=== PATIENT | male | born 1995 | race Caucasian/White ===

== ENCOUNTER 2016-03-10 08:57 | Emergency (ER) | payer OTHER ==
[2016-03-10] MEDS ORDERED: NS 0.9% 1000 ML* 1,000 ML IV ONE ×2 (09:10→09:57)
[2016-03-10 09:19] LABS: Hematocrit 46 % (42-52); Hemoglobin 15.8 g/dl (14.0-18.0); Mean Corpuscular HGB Conc 34 g/dl (31-36); Mean Corpuscular Hemoglobin 30 pg (27-31); Mean Corpuscular Volume 87 fL (80-94); Mean Platelet Volume 8 um3 (7.4-10.4); Red Blood Count 5.34 10^6/ul (4.0-5.4); Red Cell Distribution Width 13 % (10.5-15); White Blood Count 9.5 10^3/ul (3.5-10.8)
[2016-03-10 09:33] LABS: Albumin 4.7 g/dL (3.2-5.2); BUN/Creatinine Ratio 15.1 (8-20); Calcium 9.5 mg/dL (8.6-10.3); EGFR African American 134.6 (>60); EGFR Non-African American 104.7 (>60); Globulin 3.3 g/dL (2-4); Magnesium 2.4 mg/dL (1.9-2.7); Potassium 3.6 mmol/L (3.5-5.0)
[2016-03-10] MEDS ORDERED: Acetaminophen TAB* 325 MG PO ONE (10:24)
[2016-03-10] MEDS ORDERED: Valproic Acid IV(*) 500 MG in NS 0.9% 100 ML* 100 ML IVPB ONE (10:29)
--- NOTE | 2016-03-10 10:44 | ED ---
Miladis Mcintosh Claudia, scribed for Nya Beatty MD on 03/10/16 at 0920 . Neurological HPI - HPI Summary HPI Summary: 20 year old male presents to the ED post Sz. Pt and pt's girlfriend whom witnessed the Sz documented. The note the Sz occurred this am while they were both lying in bed. Pt girlfriend noted the Sz lasted about 4-5 minutes. She also noted that the pt was complaining of a little tightness in his chest immediately before he seized, which has now resolved. Pt noted PMHx of Sz but the last episode of Sz was when he was in 8th grade. Pt does take a Rx of depakote and has been taking it regularly. Pt notes he only had 1 drink of ETOH last night but only got about 4-5 hours of sleep and is unsure if it triggered the Sz. Pt denies biting his tongue or hitting his head. Pt also denies any vomiting or diarrhea. Pt does admit to a mild SERRATO upon arrival to ED. - History of Current Complaint Stated Complaint: SEIZURE Time Seen by Provider: 03/10/16 09:10 Hx Obtained From: Patient Onset/Duration: Sudden Onset - Sz this am Timing: Sudden Onset Neurological Deficit Location: Generalized - Sz Seizure Character: Generalized Associated Signs and Symptoms: Positive: Headache, Seizure - 1 episode this am. Negative: Incontinent Bladder/Bowel, Nausea/Vomiting, Diarrhea - Allergy/Home Medications Allergies/Adverse Reactions: Allergies Allergy/AdvReac Type Severity Reaction Status Date / Time No Known Allergies Allergy Verified 03/10/16 09:18 PMH/Surg Hx/FS Hx/Imm Hx Previously Healthy: Yes Endocrine/Hematology History: Denies: Hx Diabetes Neurological History: Reports: Hx Seizures - Family History Known Family History: Negative: Hypertension, Diabetes, Seizure Disorder - Social History Occupation: Student - [employer] Lives: With Family Alcohol Use: Rare Hx Substance Use: No Hx Tobacco Use: No Review of Systems Constitutional: Negative Eyes: Negative ENT: Negative Cardiovascular: Negative Respiratory: Negative Gastrointestinal: Negative Negative: Vomiting, Diarrhea Genitourinary: Negative Musculoskeletal: Negative Skin: Negative Positive: Headache Psychological: Normal All Other Systems Reviewed And Are Negative: Yes Physical Exam Triage Information Reviewed: Yes Vital Signs On Initial Exam: Initial Vitals Temp Pulse Resp BP Pulse Ox 97.6 F 94 16 105/62 99 03/10/16 09:05 03/10/16 09:05 03/10/16 09:05 03/10/16 09:05 03/10/16 09:05 Vital Signs Reviewed: Yes Appearance: Positive: Well-Appearing, No Pain Distress Skin: Positive: Warm, Skin Color Reflects Adequate Perfusion, Dry Eyes: Positive: EOMI, PRICE ENT: Positive: Pharynx normal, TMs normal, Other - no tongue abrasion Neck: Positive: Supple, Nontender Respiratory/Lung Sounds: Positive: Clear to Auscultation, Breath Sounds Present. Negative: Rales, Rhonchi, Wheezes Cardiovascular: Positive: RRR. Negative: Murmur, Rub Abdomen Description: Positive: Nontender, Soft. Negative: Distended, Guarding Bowel Sounds: Positive: Present Musculoskeletal: Positive: Strength/ROM Intact. Negative: Edema Left, Edema Right Neurological: Positive: Sensory/Motor Intact, Alert, Oriented to Person Place, Time, CN Intact II-III Psychiatric: Positive: Affect/Mood Appropriate Diagnostics - Vital Signs Vital Signs Temp Pulse Resp BP Pulse Ox 03/10/16 09:30 89 113/68 99 03/10/16 09:20 93 98 03/10/16 09:18 105/62 03/10/16 09:05 97.6 F 94 16 105/62 99 - Laboratory Lab Results: Lab Results 03/10/16 03/10/16 03/10/16 Range/Units 09:10 09:10 09:10 WBC 9.5 (3.5-10.8) 10^3/ul RBC 5.34 (4.0-5.4) 10^6/ul Hgb 15.8 (14.0-18.0) g/dl Hct 46 (42-52) % MCV 87 (80-94) fL MCH 30 (27-31) pg MCHC 34 (31-36) g/dl RDW 13 (10.5-15) % Plt Count 209 (150-450) 10^3/ul MPV 8 (7.4-10.4) um3 Neut % (Auto) 54.0 (38-83) % Lymph % (Auto) 33.3 (25-47) % [place] % (Auto) 10.4 H (1-9) % Eos % (Auto) 1.7 (0-6) % Baso % (Auto) 0.6 (0-2) % Absolute Neuts (auto) 5.1 (1.5-7.7) 10^3/ul Absolute Lymphs (auto) 3.2 (1.0-4.8) 10^3/ul Absolute Monos (auto) 1.0 H (0-0.8) 10^3/ul Absolute Eos (auto) 0.2 (0-0.6) 10^3/ul Absolute Basos (auto) 0.1 (0-0.2) 10^3/ul Absolute Nucleated RBC 0.01 10^3/ul Nucleated RBC % 0.1 INR (Anticoag Therapy) 1.09 (0.89-1.11) Sodium 133 (133-145) mmol/L Potassium 3.6 (3.5-5.0) mmol/L Chloride 100 L (101-111) mmol/L Carbon Dioxide 19 L (22-32) mmol/L Anion Gap 14 H (2-11) mmol/L BUN 14 (6-24) mg/dL Creatinine 0.93 (0.67-1.17) mg/dL Est GFR ( Amer) 134.6 (>60) Est GFR (Non-Af Amer) 104.7 (>60) BUN/Creatinine Ratio 15.1 (8-20) Glucose 111 H (70-100) mg/dL Lactic Acid (0.5-2.0) mmol/L Calcium 9.5 (8.6-10.3) mg/dL Magnesium 2.4 (1.9-2.7) mg/dL Total Bilirubin 1.00 (0.2-1.0) mg/dL AST 18 (13-39) U/L ALT 21 (7-52) U/L Alkaline Phosphatase 46 (34-104) U/L Total Protein 8.0 (6.4-8.9) g/dL Albumin 4.7 (3.2-5.2) g/dL Globulin 3.3 (2-4) g/dL Albumin/Globulin Ratio 1.4 (1-3) Valproic Acid 27.0 L (50-100) mcg/mL 03/10/16 Range/Units 09:10 WBC (3.5-10.8) 10^3/ul RBC (4.0-5.4) 10^6/ul Hgb (14.0-18.0) g/dl Hct (42-52) % MCV (80-94) fL MCH (27-31) pg MCHC (31-36) g/dl RDW (10.5-15) % Plt Count (150-450) 10^3/ul MPV (7.4-10.4) um3 Neut % (Auto) (38-83) % Lymph % (Auto) (25-47) % [place] % (Auto) (1-9) % Eos % (Auto) (0-6) % Baso % (Auto) (0-2) % Absolute Neuts (auto) (1.5-7.7) 10^3/ul Absolute Lymphs (auto) (1.0-4.8) 10^3/ul Absolute Monos (auto) (0-0.8) 10^3/ul Absolute Eos (auto) (0-0.6) 10^3/ul Absolute Basos (auto) (0-0.2) 10^3/ul Absolute Nucleated RBC 10^3/ul Nucleated RBC % INR (Anticoag Therapy) (0.89-1.11) Sodium (133-145) mmol/L Potassium (3.5-5.0) mmol/L Chloride (101-111) mmol/L Carbon Dioxide (22-32) mmol/L Anion Gap (2-11) mmol/L BUN (6-24) mg/dL Creatinine (0.67-1.17) mg/dL Est GFR ( Amer) (>60) Est GFR (Non-Af Amer) (>60) BUN/Creatinine Ratio (8-20) Glucose (70-100) mg/dL Lactic Acid 7.8 H* (0.5-2.0) mmol/L Calcium (8.6-10.3) mg/dL Magnesium (1.9-2.7) mg/dL Total Bilirubin (0.2-1.0) mg/dL AST (13-39) U/L ALT (7-52) U/L Alkaline Phosphatase (34-104) U/L Total Protein (6.4-8.9) g/dL Albumin (3.2-5.2) g/dL Globulin (2-4) g/dL Albumin/Globulin Ratio (1-3) Valproic Acid (50-100) mcg/mL Result Diagrams: 03/10/16 09:10 03/10/16 09:10 Lab Statement: Any lab studies that have been ordered have been reviewed, and results considered in the medical decision making process. - EKG 9:00 Cardiac Rate: NL EKG Rhythm: Sinus Rhythm - 103 beats/min EKG Interpretation: No inverted T-waves. Course/Dx - Course Course Of Treatment: 20 yo male on depakote 500 mg qhs for seizures, without a sz since the age of 9 had a seizure lasting ~4mins according to significant other this am without head injury,tongue biting, or urinary incontinence. He reports one drink last night (he was released to do so by his neurologist in [place] ) and he had a lack of sleep due to taking care of his sick girlfriend. His depakote level here is 24. Neurology here suggested 500 mg IV dose of depakote and an increase in dosage of 750 since the pt has not had levels checked in many months. Pt is now aware the [facility] can draw his blood for his levels and that he may want to get a provider there to coordinate his care with his neurologist. He is also aware that he may not drive for the next 6 months. A course of 10 days of depakote at 750mg has been eprescribed to the [facility] - Diagnoses Provider Diagnoses: Seizure - Physician Notifications Discussed Care of Patient With: Isi at 1030am Discharge - Discharge Plan Condition: Stable Disposition: HOME Prescriptions: Divalproex ER TAB(*) [Depakote ER TAB(*)] 750 mg PO DAILY #30 tab The documentation as recorded by the Miladis gallo Claudia accurately reflects the service I personally performed and the decisions made by me, Nya Beatty MD.
[2016-03-10 12:51] VITALS: BP 130/67
== END 2016-03-10 12:39 | disposition home or self-care (01) ==
LOC: ED 08:57
DX: R56.9 Unspecified convulsions (principal); R51 Headache
CPT/HCPCS: 36415; 80053; 80164; 83605; 83735; 85025; 85610; 93005; 96360; 99283; A9270-GY